=== PATIENT | male | born 1970 | race Caucasian/White ===

== ENCOUNTER 2018-12-11 11:12 | Emergency (ER) | payer MEDICAID ==
[2018-12-11 12:02] VITALS: BP 123/79; PULSE 51; RESP 18; TEMP 97.7; O2SAT 98
--- NOTE | 2018-12-11 12:51 | RAD ---
Date of service: 12/11/2018 HISTORY: Sepsis Patient COMPARISON: No prior study available comparison FINDINGS: LUNGS: No active pulmonary disease. PLEURA: No significant pleural effusion identified, no pneumothorax apparent. CARDIOVASCULAR: Endovascular stent grafts are seen in the thoracic aorta Heart is mildly enlarged... No jose pulmonary vascular congestion. OSSEOUS STRUCTURES: No significant abnormalities. VISUALIZED UPPER ABDOMEN: Normal. OTHER FINDINGS: None. IMPRESSION: No active disease. . In situ endovascular stent grafts are seen within the thoracic aorta clinical correlation with history recommended. Mild cardiomegaly.
[2018-12-11 13:10] LABS: VENOUS BLOOD GAS PO2 32 mm/Hg (30-55); VENOUS BLOOD PH 7.34 (7.32-7.43)
[2018-12-11 13:14] LABS: BASO # 0.03 K/mm3 (0.0-2.0); BASO % 0.3 % (0.0-3.0); EOS # 0.2 (0.0-0.7); EOS % 1.8 % (1.5-5.0); HEMOGLOBIN 12.4 g/dL (14.0-18.0); LYMPH # 1.3 (1.2-3.4); LYMPH % 12.6 % (22.0-35.0); MEAN CELL VOLUME 88.1 fl (80.0-105.0); MEAN PLATELET VOLUME 9.2 fl (7.0-11.0); MONO # 0.9 (0.1-0.6); MONO % 9.2 % (1.0-6.0); RBC 4.27 10^6/uL (3.5-6.1); RED CELL DISTRIBUTION WIDTH 14.4 % (11.5-14.5); WHITE BLOOD COUNT 10.2 10^3/uL (4.5-11.0)
[2018-12-11 13:21] LABS: INR 1.5; PARTIAL THROMBOPLASTIN TIME 37.1 Seconds (26.9-38.3)
--- NOTE | 2018-12-11 13:22 | ED PDOC ---
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 As per , patient was in the bathroom when he experienced profuse perspiration associated with nausea for few minutes. denies any loss of consciousness at the time and denies any similar episodes in the past. denies any other somatic complaints. denies any fever, vomiting, decrease appetite, shortness of breath or any other complaints. At bedside, patient nods yes or no questions but does not verbalize any complaints. Patient denies any chest pain, abdominal pain, headache or any dizziness by nodding no to questions. PMD: Luciano Neurologist: [facility] Time/Duration: Prior to Arrival Symptom Onset: Gradual Symptom Course: Resolved Activities at Onset: Light Context: Home Past Medical History - Provider Review Nursing Documentation Reviewed: Yes - Infectious Disease Hx of Infectious Diseases: None - Cardiac Hx Cardiac Disorders: Yes Hx DC: Yes Hx Hypertension: Yes - Pulmonary Hx Respiratory Disorders: No - Neurological Hx Neurological Disorder: Yes HX Cerebrovascular Accident: Yes (04/2018) - HEENT Hx HEENT Disorder: Yes (Wears Glasses) - Renal Hx Renal Disorder: No - Endocrine/Metabolic Hx Endocrine Disorders: No - Hematological/Oncological Hx Blood Disorders: No - Integumentary Hx Dermatological Disorder: No - Musculoskeletal/Rheumatological Hx Musculoskeletal Disorders: No - Gastrointestinal Hx Gastrointestinal Disorders: No - Genitourinary/Gynecological Hx Genitourinary Disorders: No - Psychiatric Hx Psychophysiologic Disorder: Yes Hx Depression: Yes Hx Substance Use: No - Surgical History Hx Coronary Stent: Yes Family/Social History - Physician Review Nursing Documentation Reviewed: Yes Family/Social History: Unknown Family HX Smoking Status: Former Smoker Hx Alcohol Use: No (Former) Hx Substance Use: No Allergies/Home Meds Allergies/Adverse Reactions: Allergies No Known Allergies Allergy (Verified 12/11/18 11:22) Review of Systems - Physician Review All systems were reviewed & negative as marked: Yes - Review of Systems Constitutional: absent: Fevers Respiratory: absent: SOB Cardiovascular: absent: Chest Pain Gastrointestinal: absent: Abdominal Pain, Nausea, Vomiting Genitourinary Male: absent: Urinary Output Changes Musculoskeletal: absent: Back Pain, Neck Pain Skin: absent: Rash Neurological: absent: Headache, Dizziness Endocrine: Diaphoresis Physical Exam Vital Signs Reviewed: Yes Vital Signs Temp Pulse Resp BP Pulse Ox 12/11/18 11:12 97.7 F 51 L 18 123/79 98 Temperature: Afebrile Blood Pressure: Normal Pulse: Regular Respiratory Rate: Normal Appearance: Positive for: Well-Appearing, Non-Toxic, Comfortable Pain Distress: None Mental Status: Positive for: other (Able to nod yes or no to questions appripriately) - Systems Exam Head: Present: Atraumatic, Normocephalic Pupils: Present: PERRL Extroacular Muscles: Present: EOMI Conjunctiva: Present: Normal Respiratory/Chest: Present: Clear to Auscultation, Good Air Exchange. No: Respiratory Distress, Accessory Muscle Use Cardiovascular: Present: Regular Rate and Rhythm, Normal S1, S2. No: Murmurs Abdomen: No: Tenderness, Distention, Peritoneal Signs Upper Extremity: Present: Normal Inspection, Other (2/5 motor strength bilaterally). No: Cyanosis, Edema Lower Extremity: Present: Normal Inspection, Other (2/5 strength bilaterally). No: Edema Neurological: Present: GCS=15, Other (2/5 motor strength; able to wiggle toes ) Skin: Present: Warm, Dry, Normal Color. No: Rashes, Diaphoretic Psychiatric: Present: Alert Medical Decision Making ED Course and Treatment: 12/11/18 12:04 Impression: 48 year old male presents to the Emergency department for evaluation of an episode of diaphoresis prior to arrival. Differential Diagnosis included but are not limited to: -- Sepsis -- ACS Plan: -- Labs -- VBG -- EKG -- Chest X-ray -- Blood Culture -- Urine Culture -- Urinalysis -- Reassess and disposition Prior Visits: Notes and results from previous visits were reviewed. Progress Notes: - Lab Interpretations Lab Results: pO2 32 mm/Hg (30-55) 12/11/18 13:00 VBG pH 7.34 (7.32-7.43) 12/11/18 13:00 VBG pCO2 49.0 (40-60) 12/11/18 13:00 VBG HCO3 26.4 mmol/l (21-28) 12/11/18 13:00 VBG Total CO2 27.9 mmol.L (22-28) 12/11/18 13:00 VBG O2 Sat (Calc) 64.3 % (40-65) 12/11/18 13:00 VBG Base Excess 0.0 mmol/L (0.0-2.0) 12/11/18 13:00 VBG Potassium 4.3 mmol/L (3.6-5.2) 12/11/18 13:00 Sodium 138.0 mmol/L (132-148) 12/11/18 13:00 Chloride 106.0 mmol/L (98-107) 12/11/18 13:00 Glucose 96 mg/dl (75-110) 12/11/18 13:00 Lactate 1.3 mmol/L (0.7-2.1) 12/11/18 13:00 FiO2 21.0 % 12/11/18 13:00 - RAD Interpretation Narrative RAD Interpretations (Text): 12/11/18 14:27 CT of head reviewed by radiologist, shows: FINDINGS: HEMORRHAGE: No intracranial hemorrhage. BRAIN: No mass effect or edema. Mild atrophy for patient's age group. Scattered bilateral basal ganglia chronic lacunar infarcts. VENTRICLES: Unremarkable. No hydrocephalus. CALVARIUM: Unremarkable. PARANASAL SINUSES: Unremarkable as visualized. No significant inflammatory changes. MASTOID AIR CELLS: Unremarkable as visualized. No inflammatory changes. OTHER FINDINGS: None. IMPRESSION: No acute hemorrhage. Chest X-ray reviewed by radiologist, shows: FINDINGS: LUNGS: No active pulmonary disease. PLEURA: No significant pleural effusion identified, no pneumothorax apparent. CARDIOVASCULAR: Endovascular stent grafts are seen in the thoracic aorta Heart is mildly enlarged... No jose pulmonary vascular congestion. OSSEOUS STRUCTURES: No significant abnormalities. VISUALIZED UPPER ABDOMEN: Normal. OTHER FINDINGS: None. IMPRESSION: No active disease. . In situ endovascular stent grafts are seen within the thoracic aorta clinical correlation with history recommended. Mild cardiomegaly. Radiology Orders: 12/11/18 12:04 CHEST PORTABLE [RAD] Stat Ice [employer]: Radiologist - EKG Interpretation EKG Interpretation (Text): 12/11/18 14:14 Sinus bradycardia [address] elevations No T wave inversion Interpreted by ED Physician: Yes Type: 12 lead EKG - Scribe Statement The provider has reviewed the documentation as recorded by the Scribe Coby Hernandez. All medical record entries made by the Scribe were at my direction and personally dictated by me. I have reviewed the chart and agree that the record accurately reflects my personal performance of the history, physical exam, medical decision making, and the department course for this patient. I have also personally directed, reviewed, and agree with the discharge instructions and disposition. Disposition/Present on Arrival - Present on Arrival Any Indicators Present on Arrival: No History of DVT/PE: No History of Uncontrolled Diabetes: No Urinary Catheter: No History of Decub. Ulcer: No History Surgical Site Infection Following: Obstetrical/Gynecological Surgery - Disposition Have Diagnosis and Disposition been Completed?: Yes Diagnosis: Vasovagal episode Disposition: HOME/ ROUTINE Disposition Time: 14:44 Patient Plan: Discharge Condition: STABLE Discharge Instructions (ExitCare): Syncope (ED), Vasovagal Response (DC) Print Language: SUDANESE Additional Instructions: All medical record entries made by the Scribe were at my direction and personally dictated by me. I have reviewed the chart and agree that the record accurately reflects my personal performance of the history, physical exam, medical decision making, and the department course for this patient. I have also personally directed, reviewed, and agree with the discharge instructions and disposition. Please follow up with your PCP tomorrow Follow up with Dr. Hurtado in 1 week Referrals: Linwood Wolf MD [Primary Care Provider] - Follow up with primary Yevgeniy Hurtado MD [Staff Provider] - Follow up with primary Forms: [employer] (Canadian)
[2018-12-11 13:28] LABS: ALB/GLOB RATIO 1.2 (1.1-1.8); ALBUMIN 4.8 g/dL (3.0-4.8); ALT/SGPT 21 U/L (7-56); AST/SGOT 30 U/L (17-59); BLOOD UREA NITROGEN 19 mg/dL (7-21); CALCIUM 10.2 mg/dL (8.4-10.5); GFR NON-AFRICAN AMERICAN 59
[2018-12-11 13:38] LABS: B-TYPE NATRIURETIC PEPTIDE 116 pg/mL (0-450); TROPONIN I < 0.01 ng/mL
[2018-12-11 13:46] LABS: PH,URINE 5.5 (4.7-8.0); URINE BILIRUBIN SMALL (NEGATIVE); URINE BLOOD SMALL (NEGATIVE); URINE GLUCOSE (UA) NEGATIVE (NEGATIVE); URINE LEUKOCYTE ESTERASE NEGATIVE Leu/uL (NEGATIVE); URINE PROTEIN 30 mg/dL (<30 mg/dL); URINE UROBILINOGEN 0.2 E.U./dL (<1 E.U./dL)
[2018-12-11 13:51] LABS: URINE APPEARANCE TURBID (CLEAR); URINE COLOR YELLOW (YELLOW)
[2018-12-11 14:03] LABS: URINE HYALINE CAST 0 - 2 /hpf
--- NOTE | 2018-12-11 14:07 | CT ---
Date of service: 12/11/2018 PROCEDURE: CT HEAD WITHOUT CONTRAST. HISTORY: syncope COMPARISON: None available. TECHNIQUE: Axial computed tomography images were obtained through the head/brain without intravenous contrast. Radiation dose: Total exam DLP = 1041.29 mGy-cm. This CT exam was performed using one or more of the following dose reduction techniques: Automated exposure control, adjustment of the mA and/or kV according to patient size, and/or use of iterative reconstruction technique. FINDINGS: HEMORRHAGE: No intracranial hemorrhage. BRAIN: No mass effect or edema. Mild atrophy for patient's age group. Scattered bilateral basal ganglia chronic lacunar infarcts. VENTRICLES: Unremarkable. No hydrocephalus. CALVARIUM: Unremarkable. PARANASAL SINUSES: Unremarkable as visualized. No significant inflammatory changes. MASTOID AIR CELLS: Unremarkable as visualized. No inflammatory changes. OTHER FINDINGS: None. IMPRESSION: No acute hemorrhage.
--- NOTE | 2018-12-11 14:24 | CARD ---
APPROVED REPORT Date of service: 12/11/2018 EKG Measurement Heart [id number] NM [id number] [id number] <Conclusion> Sinus bradycardia Otherwise normal ECG
== END 2018-12-11 14:48 | disposition home or self-care (01) ==
LOC: ED 11:12
DX: R55 Syncope and collapse (principal); I10 Essential (primary) hypertension; Z87.891 Personal history of nicotine dependence

== ENCOUNTER 2018-12-13 12:59 | Outpatient (CLI) | payer MEDICAID | END 2018-12-13 13:00 | disposition home or self-care (01) | LOC: RAD 12:59 ==

== ENCOUNTER 2019-01-08 11:47 | Outpatient (CLI) | payer MEDICAID | END 2019-01-08 11:48 | disposition home or self-care (01) | LOC: RAD 11:48 ==

== ENCOUNTER 2019-01-08 15:36 | Emergency (ER) | payer MEDICAID ==
[2019-01-08 16:03] VITALS: RESP 18
--- NOTE | 2019-01-08 16:35 | ED PDOC ---
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 Per patient's , patient had 1 episode of vomiting 2 days ago and last bowel movement was 8 days ago. Patient denies any fevers, chills, headache, dizziness, chest pain, shortness of breath, dyspnea on exertion, cough, diaphoresis, nausea, active vomiting, diarrhea, back pain, neck pain, or any other complaint. Time/Duration: Prior to Arrival Symptom Onset: Sudden Symptom Course: Unchanged Activities at Onset: Light Context: Home Past Medical History - Provider Review Nursing Documentation Reviewed: Yes - Infectious Disease Hx of Infectious Diseases: None - Cardiac Hx Cardiac Disorders: Yes Hx NH: Yes Hx Hypertension: Yes Other/Comment: AORTIC ANEURYSM - Pulmonary Hx Respiratory Disorders: No - Neurological Hx Neurological Disorder: Yes HX Cerebrovascular Accident: Yes (04/2018) - HEENT Hx HEENT Disorder: Yes - Renal Hx Renal Disorder: No - Endocrine/Metabolic Hx Endocrine Disorders: No - Hematological/Oncological Hx Blood Disorders: No - Integumentary Hx Dermatological Disorder: No - Musculoskeletal/Rheumatological Hx Musculoskeletal Disorders: Yes Hx Falls: Yes Other/Comment: WC BOUND - Gastrointestinal Hx Gastrointestinal Disorders: No - Genitourinary/Gynecological Hx Genitourinary Disorders: No - Psychiatric Hx Psychophysiologic Disorder: Yes Hx Depression: Yes Hx Substance Use: No - Surgical History Hx Coronary Stent: Yes Family/Social History - Physician Review Nursing Documentation Reviewed: Yes Family/Social History: Unknown Family HX Smoking Status: Former Smoker Hx Alcohol Use: No (Former) Hx Substance Use: No Allergies/Home Meds Allergies/Adverse Reactions: Allergies No Known Allergies Allergy (Verified 01/08/19 15:56) Home Medications: Home Meds Medication Instructions Recorded Confirmed Amantadine [Amantadine 100 mg Cap] 100 mg PO BID 01/08/19 01/08/19 Lisinopril [Zestril] 5 mg PO DAILY 01/08/19 01/08/19 Propranolol [Inderal] 60 mg PO DAILY 01/08/19 01/08/19 Rivaroxaban [Xarelto] 20 mg PO DAILY 01/08/19 01/08/19 Venlafaxine [Effexor XR] 150 mg PO DAILY 01/08/19 01/08/19 Review of Systems - Physician Review All systems were reviewed & negative as marked: Yes - Review of Systems Constitutional: Normal Eyes: Normal ENT: Normal Respiratory: Normal Cardiovascular: Normal Gastrointestinal: Abdominal Pain, Constipation. absent: Diarrhea, Nausea, Vomiting Genitourinary Male: Normal Musculoskeletal: Normal Skin: Normal Neurological: Normal Endocrine: Normal Hemo/Lymphatic: Normal Psychiatric: Normal Physical Exam Vital Signs Reviewed: Yes Vital Signs Temp Pulse Resp BP Pulse Ox 01/08/19 15:59 98.2 F 71 18 129/80 98 Temperature: Afebrile Blood Pressure: Normal Pulse: Regular Respiratory Rate: Normal Appearance: Positive for: Well-Appearing, Non-Toxic, Comfortable Pain Distress: Mild Mental Status: Positive for: Alert and Oriented X 3 Medical Decision Making ED Course and Treatment: 01/08/19 16:36 Impression: 48 year old M presents for evaluation of aortic aneurysm after an MRA and complaints of abdominal pain since today Plan: -- Labs -- UA --CT angio --Esmolol drip --VBG --Vascular surgery consult -- Reassess and disposition Prior Visits: Notes and results from previous visits were reviewed. Progress Notes: 01/08/19 19:05 Imaging reviewed with radiologist with findings of aortic dissection present from the thoracic aorta down to towards the birfurcation of the illiacs extending towards the R renal artery. Patient's updated of findings and imminent transfer to a hospital better able to accommodate needs of patient with a vascular surgeon. Call placed to [facility] and [facility] 01/08/19 19:[address] Noel Mitchell(vascular surgery) who accepts patient onto vascular service. He states he requests patient to be transferred to [facility] for escalation of care and will discuss case with Dr. Sugar Altamirano( vascular fellow). Attempt to contact Emergency Room at [facility]. He requests for patient's blood pressure to be kept below 110 SBP and to be transferred immediately. Spoke to Dr. Schuster(Emergency department physician) who accepts patient for transfer. Consent forms signed per patient's . 01/08/19 20:04 [facility] ambulance services transporting patient via ALS services. - Lab Interpretations Lab Results: 01/08/19 17:10 01/08/19 17:10 Lab Results 01/08/19 17:10: Sodium 139, Potassium 3.4 L, Chloride 101, Carbon Dioxide 26, Anion Gap 15, BUN 17, Creatinine 1.0, Est GFR ( Amer) > 60, Est GFR (Non- Af Amer) > 60, Random Glucose 107, Calcium 9.5, Magnesium 2.0, Total Bilirubin 0.2, AST 25, ALT 20, Alkaline Phosphatase 118, Troponin I < 0.01, Total Protein 7.6, Albumin 4.1, Globulin 3.5, Albumin/Globulin Ratio 1.2, Lipase 144 01/08/19 17:10: PT 17.3 H, INR 1.56, APTT 42.9 H 01/08/19 17:10: WBC 7.0 D, RBC 4.19, Hgb 12.2 L, Hct 36.8 L, MCV 87.8, MCH 29.1, MCHC 33.2, RDW 14.4, Plt Count 311, MPV 8.7, Neut % (Auto) 53.5, Lymph % (Auto) 31.0, [place] % (Auto) 10.9 H, Eos % (Auto) 3.6, Baso % (Auto) 1.0, Lymph # (Auto) 2.2, [place] # (Auto) 0.8 H, Eos # (Auto) 0.3, Baso # (Auto) 0.07, Absolute Neuts (auto) 3.77 I have reviewed the lab results: Yes - RAD Interpretation Narrative RAD Interpretations (Text): 01/08/19 18:55 Chest X Ray -- FINDINGS: LUNGS: No active pulmonary disease. PLEURA: No significant pleural effusion identified, no pneumothorax apparent. CARDIOVASCULAR: No atherosclerotic calcification present Stable position of thoracic aortic endo graft. OSSEOUS STRUCTURES: No significant abnormalities. VISUALIZED UPPER ABDOMEN: Normal. OTHER FINDINGS: None. IMPRESSION: No active disease. No significant interval change compared to the prior examination(s). 01/08/19 19:21 Chest/ Abdomen/ Pelvis CTA Findings: Visualized portions of the inferior thyroid gland appear unremarkable. The mediastinal and hilar vascular structures appear within normal limits. The heart appears within normal limits of size. Thoracic aortic vascular stent at the level of left carotid and subclavian artery takeoff. Evidence of dissection which appears to begin the level of the left subclavian artery involving the proximal origin of the left subclavian artery as well as extending distally through the remainder of the thoracic and abdominal aorta to the proximal right common iliac origin. 1.3 cm nodule at the right lung base in region atelectasis. No pleural effusion. No pneumothorax. The celiac artery origin is widely patent. The superior mesenteric artery origin is widely patent. The inferior mesenteric artery origin is patent. Bilateral renal arteries are identified bilaterally and appear patent. However, please note that the origin of the right renal artery arises near the plane of dissection off of the true lumen (on the left) and subtle attenuation differences are noted with mild hypoattenuation of the right kidney. The liver appears within normal limits of size and morphology. The pancreas, spleen, adrenal glands, and gallbladder appear unremarkable. No hydronephrosis or obstructing renal calculi. No enlarged abdominal lymphadenopathy is identified. The stomach is nondistended. Visualized bowel loops appear within normal limits of caliber without evidence of obstruction. The appendix appears normal. No inflammatory changes are seen in the right lower quadrant to suggest acute appendicitis. No definite free air. The urinary bladder appears unremarkable. No significant pelvic free fluid is identified. Degenerative changes. Impression: Aortic vascular stent at the level of left carotid and subclavian artery takeoff. Aortic dissection which arises at the level of the left subclavian artery involving the proximal origin of the left subclavian artery as well as extending distally through the remainder of the thoracic and abdominal aorta and terminates at the proximal right common iliac origin. Analysis Reporting Developer: Radiologist - Medication Orders Current Medication Orders: 01/08/19 19:41 01/08/19 17:10 01/08/19 17:10 Lab Results 01/08/19 17:10: Sodium 139, Potassium 3.4 L, Chloride 101, Carbon Dioxide 26, Anion Gap 15, BUN 17, Creatinine 1.0, Est GFR ( Amer) > 60, Est GFR (Non-Af Amer) > 60, Random Glucose 107, Calcium 9.5, Magnesium 2.0, Total Bilirubin 0.2, AST 25, ALT 20, Alkaline Phosphatase 118, Troponin I < 0.01, Total Protein 7.6, Albumin 4.1, Globulin 3.5, Albumin/Globulin Ratio 1.2, Lipase 144 01/08/19 17:10: PT 17.3 H, INR 1.56, APTT 42.9 H 01/08/19 17:10: WBC 7.0 D, RBC 4.19, Hgb 12.2 L, Hct 36.8 L, MCV 87.8, MCH 29.1, MCHC 33.2, RDW 14.4, Plt Count 311, MPV 8.7, Neut % (Auto) 53.5, Lymph % (Auto) 31.0, [place] % (Auto) 10.9 H, Eos % (Auto) 3.6, Baso % (Auto) 1.0, Lymph # (Auto) 2.2, [place] # (Auto) 0.8 H, Eos # (Auto) 0.3, Baso # (Auto) 0.07, Absolute Neuts (auto) 3.77 - Scribe Statement The provider has reviewed the documentation as recorded by the Genet Warren All medical record entries made by the Scribe were at my direction and personally dictated by me. I have reviewed the chart and agree that the record accurately reflects my personal performance of the history, physical exam, medical decision making, and the department course for this patient. I have also personally directed, reviewed, and agree with the discharge instructions and disposition. Disposition/Present on Arrival - Present on Arrival Any Indicators Present on Arrival: No History of DVT/PE: No History of Uncontrolled Diabetes: No Urinary Catheter: No History of Decub. Ulcer: No History Surgical Site Infection Following: None - Disposition Have Diagnosis and Disposition been Completed?: Yes Diagnosis: Dissecting aortic aneurysm Disposition: Transfer [facility] Disposition Time: 20:00 Patient Plan: Transfer To Condition: CRITICAL Forms: [employer] (Swedish)
[2019-01-08 17:28] LABS: BASO # 0.07 K/mm3 (0.0-2.0); EOS # 0.3 (0.0-0.7); EOS % 3.6 % (1.5-5.0); HEMOGLOBIN 12.2 g/dL (14.0-18.0); LYMPH # 2.2 (1.2-3.4); MEAN CELL VOLUME 87.8 fl (80.0-105.0); MEAN CORPUSCULAR HEMOGLOBIN 29.1 pg (25.0-35.0); MEAN CORPUSCULAR HGB CONC 33.2 g/dl (31.0-37.0); MEAN PLATELET VOLUME 8.7 fl (7.0-11.0); MONO # 0.8 (0.1-0.6); MONO % 10.9 % (1.0-6.0); RBC 4.19 10^6/uL (3.5-6.1); RED CELL DISTRIBUTION WIDTH 14.4 % (11.5-14.5)
[2019-01-08 17:30] LABS: INR 1.56; PARTIAL THROMBOPLASTIN TIME 42.9 Seconds (26.9-38.3); PROTHROMBIN TIME 17.3 SECONDS (9.4-12.5)
[2019-01-08 17:31] LABS: ALB/GLOB RATIO 1.2 (1.1-1.8); ALBUMIN 4.1 g/dL (3.0-4.8); ALT/SGPT 20 U/L (7-56); AST/SGOT 25 U/L (17-59); BLOOD UREA NITROGEN 17 mg/dL (7-21); CALCIUM 9.5 mg/dL (8.4-10.5); GFR NON-AFRICAN AMERICAN > 60; LIPASE 144 U/L (23-300)
[2019-01-08 17:42] LABS: TROPONIN I < 0.01 ng/mL
--- NOTE | 2019-01-08 18:02 | RAD ---
Date of service: 01/08/2019 HISTORY: aortic dissection COMPARISON: 12/11/2018. FINDINGS: LUNGS: No active pulmonary disease. PLEURA: No significant pleural effusion identified, no pneumothorax apparent. CARDIOVASCULAR: No atherosclerotic calcification present Stable position of thoracic aortic endo graft. OSSEOUS STRUCTURES: No significant abnormalities. VISUALIZED UPPER ABDOMEN: Normal. OTHER FINDINGS: None. IMPRESSION: No active disease. No significant interval change compared to the prior examination(s).
--- NOTE | 2019-01-08 19:08 | CT ---
Date of service: 01/08/2019 CT Dissection protocol Indication: aortic dissection seen on MRI Technique: Contiguous axial images were obtained through the chest/abdomen/pelvis without and with intravenous contrast enhancement utilizing dissection protocol technique. Sagittal and coronal reconstructions were generated and reviewed. This CT exam was performed using 1 or more of the following dose reduction techniques: Automated exposure control, adjustment of the MAA and/or kV according to patient size, and/or use of iterative reconstruction technique. Radiation dose (DLP): 2469.6 MGy-cm. Contrast: 100 cc Omnipaque 350 IV Comparison: None available Findings: Visualized portions of the inferior thyroid gland appear unremarkable. The mediastinal and hilar vascular structures appear within normal limits. The heart appears within normal limits of size. Thoracic aortic vascular stent at the level of left carotid and subclavian artery takeoff. Evidence of dissection which appears to begin the level of the left subclavian artery involving the proximal origin of the left subclavian artery as well as extending distally through the remainder of the thoracic and abdominal aorta to the proximal right common iliac origin. 1.3 cm nodule at the right lung base in region atelectasis. No pleural effusion. No pneumothorax. The celiac artery origin is widely patent. The superior mesenteric artery origin is widely patent. The inferior mesenteric artery origin is patent. Bilateral renal arteries are identified bilaterally and appear patent. However, please note that the origin of the right renal artery arises near the plane of dissection off of the true lumen (on the left) and subtle attenuation differences are noted with mild hypoattenuation of the right kidney. The liver appears within normal limits of size and morphology. The pancreas, spleen, adrenal glands, and gallbladder appear unremarkable. No hydronephrosis or obstructing renal calculi. No enlarged abdominal lymphadenopathy is identified. The stomach is nondistended. Visualized bowel loops appear within normal limits of caliber without evidence of obstruction. The appendix appears normal. No inflammatory changes are seen in the right lower quadrant to suggest acute appendicitis. No definite free air. The urinary bladder appears unremarkable. No significant pelvic free fluid is identified. Degenerative changes. Impression: Aortic vascular stent at the level of left carotid and subclavian artery takeoff. Aortic dissection which arises at the level of the left subclavian artery involving the proximal origin of the left subclavian artery as well as extending distally through the remainder of the thoracic and abdominal aorta and terminates at the proximal right common iliac origin. The celiac artery, superior mesenteric artery, inferior mesenteric artery, and bilateral renal arteries arise from the true lumen on the left. Please note that the origin of the right renal artery arises near the plane of dissection off of the true lumen and subtle attenuation differences are noted with mild hypoattenuation of the right kidney. 1.3 cm nodule at the right lung base in region of atelectasis. Pulmonary nodule must be considered. Recommend further evaluation with biopsy, PET- CT, or follow-up CT at 3 months, and 9 months, and 24 months. Findings discussed with Dr. Naranjo on 01/08/19 649 pm
[2019-01-08 19:20] LABS: PH,URINE 6.5 (4.7-8.0); URINE BILIRUBIN NEGATIVE (NEGATIVE); URINE BLOOD NEGATIVE (NEGATIVE); URINE GLUCOSE (UA) NEGATIVE (NEGATIVE); URINE LEUKOCYTE ESTERASE NEGATIVE Leu/uL (NEGATIVE); URINE PROTEIN NEGATIVE mg/dL (<30 mg/dL)
[2019-01-08] MEDS ORDERED: Esmolol Hcl 2500mg/250ml NAC 250 ML IV SCH (19:30)
[2019-01-08 19:54] LABS: URINE APPEARANCE CLEAR (CLEAR); URINE COLOR YELLOW (YELLOW)
[2019-01-08 20:00] LABS: VENOUS BLOOD GAS BASE EXCESS 3.6 mmol/L (0.0-2.0); VENOUS BLOOD GAS PO2 48 mm/Hg (30-55)
[2019-01-08 20:08] VITALS: BP 136/84; PULSE 79; TEMP 98.6; O2SAT 97
--- NOTE | 2019-01-09 09:42 | CARD ---
APPROVED REPORT Date of service: 01/08/2019 EKG Measurement Heart [id number] <Conclusion> Normal sinus rhythm Normal ECG
== END 2019-01-08 20:08 | disposition short-term general hospital (02) ==
LOC: ED 15:36
DX: I71.03 Dissection of thoracoabdominal aorta (principal); I10 Essential (primary) hypertension; Z86.73 Personal history of transient ischemic attack (TIA), and cerebral infarction without residual deficits